=== PATIENT | female | born 1950 | race Two or more races ===

== ENCOUNTER 2021-10-03 17:37 | Inpatient (IN) | payer OTHER ==
[~2021-10-03] VITALS: Ht 172.7 cm; Wt 70.3 kg
--- NOTE | 2021-10-03 17:57 | NUR ---
PATIENT IS RECIEVED SAYING THAT SHE HAS BEEN HAVING HEMATURIA AND RIGHT FLANK PAIN FOR LONGER THAN A WEEK.
[2021-10-03] MEDS ORDERED: NORVASC2.5 MG (17:58)
[2021-10-03] MEDS ORDERED: ELIQUIS2.5 MG (17:58)
[2021-10-03] MEDS ORDERED: LIPITOR40 MG (17:59)
[2021-10-03] MEDS ORDERED: SYNTHROID75 MCG (17:59)
--- NOTE | 2021-10-03 19:31 | NUR ---
PTE FEMENINA ALERTA Y ORIENTADA EN L[place] ESFERAS ES EVALUADA POR . SE ORIENTA OSBRE ORDENES DE [place] REFIERE COMPRENDER. SE EXTRAEN MUESTRAS DE LABORATORIOS, BAJO MEDIDAS ASEPTICAS. SE NOTIFICA A RADIOLOGIA PARA CT.
[2021-10-06] MEDS ORDERED: SOTALOL80 MG (07:52)
[2021-10-06] MEDS ORDERED: FLONASE16 GM (07:53)
[2021-10-06] MEDS ORDERED: PROLIA60 MG/1 ML (07:53)
[2021-10-06] MEDS ORDERED: AZELASTINE205.5 MCG/ (07:53)
== END 2021-10-06 10:26 | disposition home or self-care (01) | DRG 690 ==
LOC: ER 17:37 → SURG 10-04 00:12 → SURH 10-04 00:43 → SURG 10-04 09:42
PROVIDERS: ADMIT Urology; ATTEND Urology
DX: N30.01 Acute cystitis with hematuria (principal); N13.1 Hydronephrosis with ureteral stricture, not elsewhere classified; N12 Tubulo-interstitial nephritis, not specified as acute or chronic; B96.29 Other Escherichia coli [E. coli] as the cause of diseases classified elsewhere; Z20.822 Contact with and (suspected) exposure to COVID-19; I10 Essential (primary) hypertension; E03.8 Other specified hypothyroidism

== ENCOUNTER → 2021-10-31 | Outpatient (CLI) | payer OTHER ==
[~2021-10-31] MED LIST: AZELASTINE205.5 MCG/; ELIQUIS2.5 MG; FLONASE16 GM; LIPITOR40 MG; NORVASC2.5 MG; PROLIA60 MG/1 ML; SOTALOL80 MG; SYNTHROID75 MCG
== END | disposition home or self-care (01) ==
LOC: TOM 10-30 09:13
PROVIDERS: ATTEND Urology
DX: N30.00 Acute cystitis without hematuria (principal); N13.1 Hydronephrosis with ureteral stricture, not elsewhere classified
CPT/HCPCS: 74178; Q9965